=== PATIENT | male | born 1980 | race Hispanic/Latino ===

== ENCOUNTER 2016-07-07 02:08 | Emergency (ER) | payer SELFPAY ==
[~2016-07-07] VITALS: Ht 182.9 cm; Wt 93.5 kg
[~2016-07-07 02:08] MED LIST: ALBUTEROL SULF8.5 GM IH; AMOXICILLIN500 MG PO
[2016-07-07] MEDS ORDERED: MOTRIN800 MG PO (02:27)
[2016-07-07] MEDS ORDERED: AUGMENTIN875 MG PO (02:27)
[2016-07-07] MEDS ORDERED: NORCO 5/3251 TABLET PO (02:27)
[2016-07-07 02:38] VITALS: BP 108/77
[2016-07-08] MEDS ORDERED: TYLENOL EXTRA500 MG PO (21:13)
== END 2016-07-07 02:39 | disposition home or self-care (01) ==
LOC: EME 02:08
DX: H66.92 Otitis media, unspecified, left ear (principal)
CPT/HCPCS: 99281; 99284

== ENCOUNTER 2016-07-08 19:11 | Inpatient (IN) | payer SELFPAY ==
[~2016-07-08] VITALS: Ht 182.9 cm; Wt 94.0 kg
[~2016-07-08 19:11] MED LIST changes: +AUGMENTIN875 MG PO; +MOTRIN800 MG PO; +NORCO 5/3251 TABLET PO
[2016-07-08 21:07] LABS: CHLORIDE 100 mEq/L (99-109); POTASSIUM 3.3 mEq/L (3.7-5.4); SODIUM 136 mEq/L (136-147)
[2016-07-08 21:09] LABS: GLUCOSE 108 mg/dL (70-99)
[2016-07-08 21:10] LABS: ANION GAP 13 MEQ/L (2-14)
[2016-07-08 21:13] LABS: GFR ESTIMATE (CALCULATED) > 59 mL/min/
[2016-07-08] MEDS ORDERED: TYLENOL EXTRA500 MG PO (21:13)
[2016-07-08 21:14] LABS: UREA NITROGEN (BUN) 7 mg/dL (9-23)
[2016-07-08 21:31] LABS: HEMATOCRIT 45.8 % (38.0-50.0); MCH 22.8 PG (29.0-34.0); MCHC 31.9 G/DL (30.0-36.0); MCV 71.7 FL (86-99); MEAN PLAT.VOLUME 11.8 uM^3 (9.0-12.4); PLATELET COUNT 152 K/uL (156-360); RBC DIS.WIDTH-CV 13.6 % (11.8-14.6); RBC DIS.WIDTH-SD 34.3 % (39-53); RED BLOOD COUNT 6.39 M/uL (4.00-5.50); WHITE BLOOD COUNT 12.8 K/uL (4.1-10.2)
[2016-07-08 22:14] LABS: C-REACTIVE PROTEIN 79.3 MG/L (0-10)
[2016-07-08 23:40] VITALS: BP 116/76
[2016-07-09 02:11] LABS: AMPHETAMINES QUANT VALUE 0 NG/ML; BARBITUATES QUANT VALUE 0 NG/ML; BENZODIAZEPINES QUANT VALUE 0 NG/ML; BENZODIAZEPINES, URINE SCREEN Negative (200 ng/mL); PHENCYCLIDINE QUANT VALUE 0 NG/ML
[2016-07-09 04:06] VITALS: BP 97/52
[2016-07-09 06:41] LABS: HEMATOCRIT 43.3 % (38.0-50.0); MCH 22.2 PG (29.0-34.0); MCHC 30.5 G/DL (30.0-36.0); MCV 72.8 FL (86-99); MEAN PLAT.VOLUME 12.6 uM^3 (9.0-12.4); PLATELET COUNT 135 K/uL (156-360); RBC DIS.WIDTH-CV 13.8 % (11.8-14.6); RBC DIS.WIDTH-SD 36.3 % (39-53); RED BLOOD COUNT 5.95 M/uL (4.00-5.50)
[2016-07-09 06:50] LABS: CHLORIDE 107 mEq/L (99-109); POTASSIUM 3.4 mEq/L (3.7-5.4); SODIUM 142 mEq/L (136-147)
[2016-07-09 06:52] LABS: GLUCOSE 101 mg/dL (70-99)
[2016-07-09 06:54] LABS: ANION GAP 13 MEQ/L (2-14); TOTAL BILIRUBIN 0.5 mg/dL (0.0-1.0)
[2016-07-09 06:56] LABS: ALKALINE PHOSPHATASE 70 IU/L (3-129); GFR ESTIMATE (CALCULATED) > 59 mL/min/
[2016-07-09 06:57] LABS: UREA NITROGEN (BUN) 7 mg/dL (9-23)
[2016-07-09 07:27] LABS: WHITE BLOOD COUNT 7.9 K/uL (4.1-10.2)
[2016-07-09 09:08] VITALS: BP 117/77
[2016-07-09 10:58] LABS: HBSG INDEX 0.25
[2016-07-09 10:59] LABS: ANTI-HEPATITIS A VIRUS (IGM) Nonreactive; HAV INDEX 0.18
[2016-07-09 11:01] LABS: ANTI-HEPATITIS B CORE (IGM) Nonreactive; HBC IgM INDEX 0.13; HIV INDEX 0.09; HIV-1/2 AB/AG COMBO Nonreactive
[2016-07-09 12:12] VITALS: BP 118/64
[2016-07-09 13:06] LABS: ADD MIUA? NO; BILIRUBIN NEGATIVE; BLOOD NEGATIVE; COLOR YELLOW ((YELLOW)); GLUCOSE (STRIP) NEGATIVE; KETONES 5; LEUKOCYTES NEGATIVE; NITRITE NEGATIVE; PROTEIN (STRIP) NEGATIVE; SPECIFIC GRAVITY 1.013 (1.000-1.030)
[2016-07-09 14:01] LABS: MAGNESIUM 1.9 mg/dL (1.3-2.7)
[2016-07-09 16:30] VITALS: BP 117/66
[2016-07-09 19:30] VITALS: BP 106/60
[2016-07-09 23:00] VITALS: BP 124/65
[2016-07-10 03:20] VITALS: BP 116/62
[2016-07-10 09:37] VITALS: BP 116/64
[2016-07-10 11:50] LABS: ANION GAP 7 MEQ/L (2-14); CHLORIDE 107 MEQ/L (99-109); GFR ESTIMATE (CALCULATED) > 59 mL/min/; GLUCOSE 93 mg/dL (70-99); SAMPLE HEMOLYSIS CHECK 0; SAMPLE ICTERIC CHECK 0; SAMPLE LIPEMIA CHECK 0; SODIUM 141 MEQ/L (136-147); UREA NITROGEN (BUN) 9 mg/dL (9-23)
[2016-07-10 11:52] LABS: POTASSIUM 4.1 MEQ/L (3.7-5.4)
[2016-07-10 11:57] LABS: HEMATOCRIT 39.9 % (38.0-50.0); MCHC 31.1 G/DL (30.0-36.0); RBC DIS.WIDTH-CV 14.4 % (11.8-14.6); RBC DIS.WIDTH-SD 38.3 % (39-53); RED BLOOD COUNT 5.39 M/uL (4.00-5.50)
[2016-07-10 11:58] LABS: MEAN PLAT.VOLUME 12.3 uM^3 (9.0-12.4); PLAT.SUFFICIENCY DECREASED; PLATELET COUNT 139 K/uL (156-360)
[2016-07-10 12:11] VITALS: BP 112/64
[2016-07-10 16:18] VITALS: BP 135/89
[2016-07-10 19:45] VITALS: BP 100/56
[2016-07-10 22:45] VITALS: BP 104/57
[2016-07-11 04:15] VITALS: BP 94/53
== END 2016-07-11 10:29 | disposition home or self-care (01) | DRG 864 ==
LOC: EME 19:11 → EDOF 22:28 → 4EAST 22:28
PROVIDERS: Internal Medicine; Physician Assistant
DX: R50.9 Fever, unspecified (principal); E87.6 Hypokalemia; R65.10 Systemic inflammatory response syndrome (SIRS) of non-infectious origin without acute organ dysfunction; K21.9 Gastro-esophageal reflux disease without esophagitis; F17.200 Nicotine dependence, unspecified, uncomplicated; F14.90 Cocaine use, unspecified, uncomplicated; F11.20 Opioid dependence, uncomplicated; F41.1 Generalized anxiety disorder; I08.1 Rheumatic disorders of both mitral and tricuspid valves; J45.909 Unspecified asthma, uncomplicated; F41.9 Anxiety disorder, unspecified
CPT/HCPCS: 71020; 80048; 80053; 80074; 80202; 80306 90; 81003; 83605; 83735; 85027; 86140; 86703; 87040; 87086; 93005; 93306; 99202; 99281; 99284; 99285; J0696; J1644; J3370; J7030; J7050